=== PATIENT | male | born 1980 | race American Indian/Alaskan Native ===

== ENCOUNTER 2017-06-01 16:38 | Emergency (ER) | payer OTHER ==
[2017-06-01 17:19] VITALS: TEMP 98.4
--- NOTE | 2017-06-01 17:32 | C.PDOC ---
History Of Present Illness 36 y/o male presents to the ED for evaluation of repaired laceration to left middle finger. Patient states his laceration was repaired on 04/16/17 at [facility], and states his continued to feel tingling sensation to fingertip. Otherwise, denies any new injury, swelling, skin changes, or fever. Time Seen by Provider: 06/01/17 17:20 Chief Complaint (Nursing): Medical Clearance History Per: Patient History/Exam Limitations: no limitations Onset/Duration Of Symptoms: Days Current Symptoms Are (Timing): Still Present Severity: None Pain Scale Rating Of: 0 Recent travel outside of the [place]: No Additional History Per: Patient Past Medical History Reviewed: Historical Data, Nursing Documentation, Vital Signs Vital Signs: Last Vital Signs Temp 98.4 F 06/01/17 17:17 Pulse 72 06/01/17 17:49 Resp 18 06/01/17 17:49 BP 120/68 06/01/17 17:49 Pulse Ox 97 06/01/17 20:51 Family History: States: Unknown Family Hx - Social History Hx Alcohol Use: Yes Hx Substance Use: No - Immunization History Hx Tetanus Toxoid Vaccination: Yes (2016) Hx Influenza Vaccination: No Hx Pneumococcal Vaccination: No Review Of Systems Except As Marked, All Systems Reviewed And Found Negative. Constitutional: Negative for: Fever, Chills Musculoskeletal: Negative for: Hand Pain Skin: Negative for: Rash, Bruising Neurological: Positive for: Other (tingling sensation to left middle finger) Physical Exam - Physical Exam Appears: Non-toxic, No Acute Distress Skin: Warm, Dry, Other (completely healed wound to left middle finger, no swelling or erythema) Head: Atraumatic, Normacephalic Extremity: Normal ROM (FROM of left hand digits), No Tenderness, Capillary Refill (< 2 sec.), No Deformity, No Swelling Extremity: Bilateral: Normal Color And Temperature, Normal ROM Pulses: Left Radial: Normal, Right Radial: Normal Neurological/Psych: Oriented x3, Normal Speech, Normal Motor, Normal Sensation ( left middle finger) ED Course And Treatment O2 Sat by Pulse Oximetry: 97 (RA) Pulse Ox Interpretation: Normal Medical Decision Making Medical Decision Makin36 year old male for evaluation of finger after lac repair 04/16/17. Patient continues to feel tingling sensation to fingertip. Finger appears normal, has normal ROM and tendon function, wound completely healed. Advise patient to follow up with hand specialist and explain sx from nerve can last weeks. 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 - Scribe Statement The provider has reviewed the documentation as recorded by the Scribe Anitra Gibbons All medical record entries made by the Dennisibe were at my direction and personally dictated by me. I have reviewed the chart and agree that the record accurately reflects my personal performance of the history, physical exam, medical decision making, and the department course for this patient. I have also personally directed, reviewed, and agree with the discharge instructions and disposition.
[2017-06-01 17:50] VITALS: BP 120/68; PULSE 72; RESP 18
[2017-06-01 20:49] VITALS: O2SAT 97
== END 2017-06-01 18:23 | disposition home or self-care (01) ==
LOC: C.ER 16:38
DX: Z48.00 Encounter for change or removal of nonsurgical wound dressing (principal)

== ENCOUNTER 2018-07-16 08:58 | Emergency (ER) | payer OTHER ==
[2018-07-16 09:20] VITALS: TEMP 98.3
[2018-07-16] MEDS ORDERED: Sodium Chloride 0.9% 1,000 ML IV ONE (10:26)
--- NOTE | 2018-07-16 10:53 | RAD ---
HISTORY: SOB COMPARISON: None available. TECHNIQUE: Chest PA and lateral FINDINGS: LUNGS: No focal consolidation. Please note that chest x-ray has limited sensitivity for the detection of pulmonary masses. PLEURA: No significant pleural effusion identified. No definite pneumothorax . CARDIOVASCULAR: The cardiomediastinal silhouette appears within normal limits of size. OSSEOUS STRUCTURES: No acute osseous abnormality identified. VISUALIZED UPPER ABDOMEN: Unremarkable. OTHER FINDINGS: None. IMPRESSION: No focal consolidation, significant pleural effusion, or definite pneumothorax identified.
[2018-07-16 11:06] LABS: BASO # 0.1 K/uL (0.0-0.2); BASO % 1.1 % (0.0-2.0); EOS # 0.2 K/uL (0.0-0.7); EOS % 4.2 % (0.0-4.0); HEMOGLOBIN 16.2 g/dL (12.0-18.0); LYMPH # 1.8 K/uL (1.0-4.3); LYMPH % 36.9 % (20.0-40.0); MEAN CELL VOLUME 83.2 fL (80.0-94.0); MEAN CORPUSCULAR HEMOGLOBIN 28.2 pg (27.0-31.0); MEAN CORPUSCULAR HGB CONC 33.9 g/dL (33.0-37.0); MEAN PLATELET VOLUME 9.5 fL (7.2-11.7); MONO # 0.5 K/uL (0.0-0.8); MONO % 9.3 % (0.0-10.0); NEUT # 2.4 K/uL (1.8-7.0); NEUT % 48.5 % (50.0-75.0); NRBC % 0.1 % (0.0-2.0); RBC 5.74 Mil/uL (4.40-5.90); RED CELL DISTRIBUTION WIDTH 14.7 % (11.5-14.5)
[2018-07-16 11:24] LABS: ALB/GLOB RATIO 1.4 (1.0-2.1); ALBUMIN 4.6 g/dL (3.5-5.0); BLOOD UREA NITROGEN 11 mg/dL (9-20); CALCIUM 9.5 mg/dl (8.6-10.4); GFR NON-AFRICAN AMERICAN > 60
[2018-07-16 11:38] LABS: ALT/SGPT 18 U/L (21-72); AST/SGOT 27 U/L (17-59)
--- NOTE | 2018-07-16 12:32 | C.PDOC ---
History Of Present Illness 37 y/o male, w/PMhx of HTN and migraines, presents to the ER complaining of headache which has been present for the past 3 days. Patient states that he recently moved to [place] and he has not been taking medications for HTN. Denies having fever and chills. Time Seen by Provider: 07/16/18 09:56 Chief Complaint (Nursing): Headache History Per: Patient History/Exam Limitations: no limitations Onset/Duration Of Symptoms: Days Current Symptoms Are (Timing): Still Present Severity: Moderate Past Medical History Reviewed: Historical Data, Nursing Documentation, Vital Signs Vital Signs: Last Vital Signs Temp 98.3 F 07/16/18 09:16 Pulse 74 07/16/18 12:49 Resp 16 07/16/18 12:49 BP 139/78 07/16/18 12:49 Pulse Ox 97 07/16/18 13:20 - Medical History PMH: HTN Other Surgeries: Hx of surgeries Family History: States: No Known Family Hx - Social History Hx Alcohol Use: No Hx Substance Use: Yes - Immunization History Hx Tetanus Toxoid Vaccination: Yes (2016) Hx Influenza Vaccination: No Hx Pneumococcal Vaccination: No Review Of Systems Except As Marked, All Systems Reviewed And Found Negative. Constitutional: Negative for: Fever, Chills Neurological: Positive for: Headache Physical Exam - Physical Exam Appears: Non-toxic, No Acute Distress Skin: Normal Color, Warm, Dry Head: Atraumatic, Normacephalic Eye(s): bilateral: Normal Inspection Nose: Normal Oral Mucosa: Moist Neck: Supple Chest: Symmetrical, Tenderness (reproducible left sided chest tenderness) Cardiovascular: Rhythm Regular Respiratory: Normal Breath Sounds, No Rales, No Rhonchi, No Wheezing Extremity: Normal ROM Neurological/Psych: Oriented x3, Normal Speech Gait: Steady ED Course And Treatment - Laboratory Results Result Diagrams: 07/16/18 10:57 07/16/18 10:57 Lab Interpretation: Normal ECG: Interpreted By Me ECG Rhythm: Sinus Rhythm ECG Interpretation: No Acute Changes Rate From EC O2 Sat by Pulse Oximetry: 97 (RA) Pulse Ox Interpretation: Normal - Radiology CXR: Interpreted by Me CXR Interpretation: Yes: No Acute Disease Progress Note: Treated with IVF NSS, reglan and toradol. On re-evaluation lungs clear Reassessment Condition: Improved Disposition Counseled Patient/Family Regarding: Studies Performed, Diagnosis, Need For Followup - Disposition Referrals: [facility] [Outside] [facility] [Outside] Disposition: HOME/ ROUTINE Disposition Time: 12:40 Condition: IMPROVED Additional Instructions: Follow up with clinic for further evaluation Return to ED if any increase symptoms Prescriptions: Naproxen [Naprosyn] 1 tab PO BID PRN #25 tab PRN Reason: Pain Instructions: Tension Headache, Migraine Headaches in Adults Forms: [employer] [facility] (Spanish) - POA Present On Arrival: None - Clinical Impression Clinical Impression: Migraine, Headache - 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 - Scribe Statement The provider has reviewed the documentation as recorded by the Jose J Jacinto Provider Attestation All medical record entries made by the Dennisibclaudette were at my direction and personally dictated by me. I have reviewed the chart and agree that the record accurately reflects my personal performance of the history, physical exam, medical decision making, and the department course for this patient. I have also personally directed, reviewed, and agree with the discharge instructions and disposition.
[2018-07-16 12:50] VITALS: BP 139/78; PULSE 74; RESP 16
[2018-07-16 13:18] VITALS: O2SAT 97
--- NOTE | 2018-07-20 08:30 | CARD ---
APPROVED REPORT Date of service: 07/16/2018 EKG Measurement Heart [id number] <Conclusion> Sinus bradycardia Minimal voltage criteria for LVH, may be normal variant Borderline ECG
== END 2018-07-16 12:49 | disposition home or self-care (01) ==
LOC: C.ER 08:58
DX: G43.909 Migraine, unspecified, not intractable, without status migrainosus (principal)
CPT/HCPCS: 71046; 80053; 84484; 85025; 93005; 96361; 96374; 96375; 99284; J1885; J2765; J7030

== ENCOUNTER 2019-03-24 11:28 | Emergency (ER) | payer MEDICAID, OTHER ==
--- NOTE | 2019-03-24 13:25 | RAD ---
PROCEDURE: Right Knee Radiographs. Three views. HISTORY: KNEE PAIN COMPARISON: None available. FINDINGS: BONES: No acute displaced fracture. JOINTS: No dislocation. JOINT EFFUSION: Small suprapatellar joint effusion. OTHER FINDINGS: None available. IMPRESSION: Small suprapatellar joint effusion. No acute displaced fracture or dislocation identified. If symptoms persist, or if there is continued clinical concern, x-ray follow-up in 7-10 days should be considered.
[2019-03-24] MEDS ORDERED: Naproxen 550 mg Tab PO STA (13:30)
[2019-03-24] MEDS ORDERED: Naproxen 550 mg Tab PO ONE (13:37)
--- NOTE | 2019-03-24 13:43 | C.PDOC ---
History Of Present Illness 38 year old male with a past medical history of HTN presents to the emergency department with complaints of right knee pain and right thumb paresthesia. Patient states that he struck his right lateral knee while sitting down a few weeks ago, and states that he feels like the knee is bruised. Patient states that sometimes the knee "swells up" making it difficult to walk. For his thumb, patient states that he struck the tip of his right thumb against a bed, and reports a "tingly feeling" for the last 2-3 weeks. Patient reports a surgery for ligament repair many years ago when he was "in high school". Time Seen by Provider: 03/24/19 12:22 Chief Complaint (Nursing): Lower Extremity Problem/Injury History Per: Patient History/Exam Limitations: no limitations Onset/Duration Of Symptoms: Other (2-3 weeks) Current Symptoms Are (Timing): Still Present - Knee Description Of Injury: Struck Against Object Currently Unable To: Bear Weight Past Medical History Reviewed: Historical Data, Nursing Documentation, Vital Signs Vital Signs: Last Vital Signs Temp 97.4 F L 03/24/19 11:30 Pulse 67 03/24/19 12:18 Resp 20 03/24/19 11:30 BP 170/120 H 03/24/19 12:18 Pulse Ox 96 03/24/19 11:30 Primary Care Provider: FAMILY PROVIDER,NO - Medical History PMH: HTN Surgical History: No Surg Hx Family History: States: No Known Family Hx - Social History Hx Alcohol Use: Yes Hx Substance Use: Yes - Immunization History Hx Tetanus Toxoid Vaccination: Yes (2016) Hx Influenza Vaccination: No Hx Pneumococcal Vaccination: No Review Of Systems Except As Marked, All Systems Reviewed And Found Negative. Constitutional: Negative for: Fever, Chills Cardiovascular: Negative for: Chest Pain Respiratory: Negative for: Cough, Shortness of Breath Gastrointestinal: Negative for: Nausea, Vomiting, Abdominal Pain, Diarrhea Musculoskeletal: Positive for: Hand Pain (right thumb), Leg Pain (right knee) Neurological: Positive for: Numbness. Negative for: Weakness Physical Exam - Physical Exam Appears: Non-toxic, No Acute Distress Skin: Normal Color, Warm, Dry Head: Atraumatic, Normacephalic Eye(s): bilateral: Normal Inspection, PERRL, EOMI Nose: Normal Neck: Normal, Supple Chest: Symmetrical, No Tenderness Cardiovascular: Rhythm Regular, No Murmur Respiratory: Normal Breath Sounds, No Rales, No Rhonchi, No Wheezing Gastrointestinal/Abdominal: Soft, No Tenderness, No Guarding, No Rebound Extremity: Normal ROM (Full ROM at right knee and right thumb), No Tenderness (to right knee), Capillary Refill (<2 seconds), No Swelling (to right knee) Extremity: Bilateral: Atraumatic Neurological/Psych: Oriented x3, Normal Speech, Normal Cognition, Normal Motor, Normal Sensation (intact at right thumb), Normal Reflexes ED Course And Treatment O2 Sat by Pulse Oximetry: 96 (RA) Pulse Ox Interpretation: Normal - Other Rad XR Right Knee X-Ray: Viewed By Me, Read By Radiologist Interpretation: IMPRESSION: Small suprapatellar joint effusion. No acute displaced fracture or dislocation identified. If symptoms persist, or if there is continued clinical concern, x-ray follow-up in 7-10 days should be considered. Medical Decision Making Medical Decision Making: Plan: XR Right Knee Naproxen 550mg PO Tylenol 650mg PO Lisinopril 20mg PO Patient was informed about high blood pressure and the need to follow up with the medical doctor for BP recheck. Disposition - Disposition Referrals: Brandon Medina MD [Staff Provider] - Disposition: HOME/ ROUTINE Disposition Time: 14:25 Condition: GOOD Additional Instructions: Follow up with the medical doctor/clinic within 1-2 days. Return if worsened. 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 - Scribe Statement The provider has reviewed the documentation as recorded by the Scribe (Lucio Escobar) All medical record entries made by the Scribe were at my direction and personally dictated by me. I have reviewed the chart and agree that the record a ccurately reflects my personal performance of the history, physical exam, medical decision making, and the department course for this patient. I have also personally directed, reviewed, and agree with the discharge instructions and disposition.
[2019-03-24 13:56] VITALS: PULSE 70
[2019-03-24 14:42] VITALS: BP 166/109; RESP 16; TEMP 98
[2019-03-24 14:55] VITALS: O2SAT 96
== END 2019-03-24 14:41 | disposition home or self-care (01) ==
LOC: C.ER 11:28
DX: M25.461 Effusion, right knee (principal); I10 Essential (primary) hypertension